=== PATIENT | female | born 1960 | race Caucasian/White ===

== ENCOUNTER 2021-09-22 10:12 | Observation (INO) | payer OTHER ==
[~2021-09-22] VITALS: Ht 170.2 cm; Wt 102.1 kg
[2021-09-22 10:22] VITALS: BP 98/69
[2021-09-22 11:00] LABS: BASO % 0.8 % (0.0-1.0); EOS # 0.1 10*3/uL (0.0-0.4); HEMATOCRIT 37.1 % (37.0-47.0); LYMPH # 0.5 10*3/uL (1.3-4.4); LYMPH % 14.4 % (27.0-41.0); MEAN CORPUSCULAR HGB 32.6 pg (27.0-31.0); MEAN CORPUSCULAR HGB CONC 32.6 g/dl (33.0-37.0); MEAN PLATELET VOLUME 8.9 fl (9.6-12.3); MONO # 0.5 10*3/uL (0.1-1.0); MONO % 14.7 % (3.0-9.0); NEUT # 2.5 10*3/uL (2.3-7.9); NEUT % 66.8 % (47.0-73.0); PLATELET COUNT AUTOMATED 297 10*3/uL (130-400); RED BLOOD COUNT 3.71 10*6/uL (4.10-5.10); RED CELL DISTRI WIDTH 13.3 % (0-14.5); WHITE BLOOD COUNT 3.7 10*3/uL (4.8-10.8)
[2021-09-22 11:11] LABS: ALBUMIN 3.4 gm/dl (3.1-4.5); ALKALINE PHOSPHATASE 74 U/L (45-117); BUN 7 mg/dl (7-24); CHLORIDE 108 mmol/L (98-107); CREATININE 1.06 mg/dL (0.55-1.02); LIPASE 74 U/L (73-393); POTASSIUM 3.4 mmol/L (3.5-5.1); SGOT/AST 18 IU/L (3-35); SGPT/ALT 27 U/L (12-78); SODIUM 140 mmol/L (136-145); TOTAL PROTEIN 6.7 gm/dL (6.4-8.2)
[2021-09-22 11:17] LABS: ACT PARTIAL THROMBO TIME 23.6 SECONDS (20.0-32.1)
[2021-09-22 12:00] VITALS: BP 144/58
[2021-09-22 14:07] VITALS: BP 101/40
[2021-09-22 15:31] VITALS: BP 134/65
[2021-09-22 17:01] VITALS: BP 143/68
[2021-09-22] MEDS ORDERED: ESZOPICLONE3 MG PO (17:15)
[2021-09-22] MEDS ORDERED: ATORVASTATIN CA20 M1 PO (17:16)
[2021-09-22] MEDS ORDERED: METHOTREXA25 MG/1 ML IJ (17:16)
[2021-09-22] MEDS ORDERED: BUPROPION ER100 M1 PO (17:17)
[2021-09-22] MEDS ORDERED: HYDROXYCHLOROQ200 M1 PO (17:17)
[2021-09-22] MEDS ORDERED: CEVIMELINE HCL30 MG PO (17:17)
[2021-09-22] MEDS ORDERED: PANTOPRAZOLE SO40 MG PO (17:18)
[2021-09-22] MEDS ORDERED: LEUCOVORIN CALCI5 MG PO (17:18)
[2021-09-22] MEDS ORDERED: SERTRALINE HYDR50 MG PO (17:18)
[2021-09-22] MEDS ORDERED: SYNTHROID,LEV125 MCG PO (17:19)
[2021-09-22 20:00] VITALS: BP 138/70
[2021-09-23] VITALS: BP 115/65; BP 116/55
[2021-09-23 06:19] LABS: ALBUMIN 3.5 gm/dl (3.1-4.5); BUN 7 mg/dl (7-24); CHLORIDE 112 mmol/L (98-107); CHOLESTEROL 132 mg/dL (<200); CREATININE 0.81 mg/dL (0.55-1.02); POTASSIUM 3.8 mmol/L (3.5-5.1); SGOT/AST 24 IU/L (3-35); SGPT/ALT 34 U/L (12-78); SODIUM 142 mmol/L (136-145)
[2021-09-23 06:26] LABS: ALKALINE PHOSPHATASE 74 U/L (45-117); BASO % 0.3 % (0.0-1.0); HEMATOCRIT 39.7 % (37.0-47.0); LDL CHOLESTEROL 61 mg/dL (9-159); LYMPH # 0.3 10*3/uL (1.3-4.4); LYMPH % 9.9 % (27.0-41.0); MEAN CELL VOLUME 102.3 fl (81.0-99.0); MEAN CORPUSCULAR HGB 32.2 pg (27.0-31.0); MEAN CORPUSCULAR HGB CONC 31.5 g/dl (33.0-37.0); MEAN PLATELET VOLUME 9.5 fl (9.6-12.3); MONO # 0.2 10*3/uL (0.1-1.0); MONO % 4.4 % (3.0-9.0); NEUT # 2.9 10*3/uL (2.3-7.9); NEUT % 85.1 % (47.0-73.0); PLATELET COUNT AUTOMATED 297 10*3/uL (130-400); RED BLOOD COUNT 3.88 10*6/uL (4.10-5.10); RED CELL DISTRI WIDTH 13.2 % (0-14.5); THYROID STIM HORMONE (HS) 0.053 uIU/ml (0.358-4.75); TRIGLYCERIDES 42 mg/dl (<150); WHITE BLOOD COUNT 3.4 10*3/uL (4.8-10.8)
[2021-09-23 08:00] VITALS: BP 103/88
[2021-09-23 08:46] LABS: VITAMIN D, 25-HYDROXY 36.8 ng/mL (30-100)
[2021-09-23 12:00] VITALS: BP 121/58
[2021-09-23 16:00] VITALS: BP 130/58
[2021-09-23 20:00] VITALS: BP 130/56
[2021-09-24] VITALS: BP 122/50
[2021-09-24 05:52] LABS: ALBUMIN 3.1 gm/dl (3.1-4.5); BUN 15 mg/dl (7-24); CHLORIDE 109 mmol/L (98-107); CREATININE 0.81 mg/dL (0.55-1.02); POTASSIUM 3.6 mmol/L (3.5-5.1); SGOT/AST 16 IU/L (3-35); SGPT/ALT 27 U/L (12-78); SODIUM 143 mmol/L (136-145); TOTAL PROTEIN 6.3 gm/dL (6.4-8.2)
[2021-09-24 05:53] LABS: ALKALINE PHOSPHATASE 65 U/L (45-117)
[2021-09-24 06:18] LABS: BASO % 0.2 % (0.0-1.0); HEMATOCRIT 36.6 % (37.0-47.0); LYMPH # 1.2 10*3/uL (1.3-4.4); LYMPH % 22.9 % (27.0-41.0); MEAN CELL VOLUME 101.1 fl (81.0-99.0); MEAN CORPUSCULAR HGB 32.9 pg (27.0-31.0); MEAN CORPUSCULAR HGB CONC 32.5 g/dl (33.0-37.0); MEAN PLATELET VOLUME 9.7 fl (9.6-12.3); MONO # 0.6 10*3/uL (0.1-1.0); MONO % 11.1 % (3.0-9.0); NEUT # 3.5 10*3/uL (2.3-7.9); NEUT % 65.6 % (47.0-73.0); PLATELET COUNT AUTOMATED 293 10*3/uL (130-400); RED BLOOD COUNT 3.62 10*6/uL (4.10-5.10); RED CELL DISTRI WIDTH 13.2 % (0-14.5); WHITE BLOOD COUNT 5.3 10*3/uL (4.8-10.8)
[2021-09-24 08:00] VITALS: BP 118/76
[2021-09-24 12:00] VITALS: BP 126/73
[2021-09-24 16:00] VITALS: BP 136/66
[2021-09-24 20:00] VITALS: BP 124/52
[2021-09-25] VITALS: BP 110/90
[2021-09-25 06:49] LABS: BASO % 0.3 % (0.0-1.0); EOS # 0.1 10*3/uL (0.0-0.4); EOS % 1.5 % (1.0-4.0); HEMATOCRIT 37.4 % (37.0-47.0); LYMPH # 2.2 10*3/uL (1.3-4.4); LYMPH % 37.6 % (27.0-41.0); MEAN CELL VOLUME 100.3 fl (81.0-99.0); MEAN CORPUSCULAR HGB 32.4 pg (27.0-31.0); MEAN CORPUSCULAR HGB CONC 32.4 g/dl (33.0-37.0); MEAN PLATELET VOLUME 9.5 fl (9.6-12.3); MONO # 0.7 10*3/uL (0.1-1.0); MONO % 12.3 % (3.0-9.0); NEUT # 2.8 10*3/uL (2.3-7.9); NEUT % 47.6 % (47.0-73.0); PLATELET COUNT AUTOMATED 282 10*3/uL (130-400); RED BLOOD COUNT 3.73 10*6/uL (4.10-5.10); RED CELL DISTRI WIDTH 13.2 % (0-14.5); WHITE BLOOD COUNT 5.8 10*3/uL (4.8-10.8)
[2021-09-25 06:59] LABS: ALBUMIN 3.2 gm/dl (3.1-4.5); ALKALINE PHOSPHATASE 61 U/L (45-117); BUN 16 mg/dl (7-24); CHLORIDE 110 mmol/L (98-107); CREATININE 0.82 mg/dL (0.55-1.02); POTASSIUM 3.2 mmol/L (3.5-5.1); SGOT/AST 18 IU/L (3-35); SGPT/ALT 26 U/L (12-78); SODIUM 143 mmol/L (136-145); TOTAL PROTEIN 6.2 gm/dL (6.4-8.2)
[2021-09-25 08:00] VITALS: BP 137/61
[2021-09-25] MEDS ORDERED: 'XANAX1 MG PO (09:56)
[2021-09-25] MEDS ORDERED: XANAX1 MG PO (09:57)
[2021-09-25 12:00] VITALS: BP 145/76
[2021-09-25 16:00] VITALS: BP 131/53
[2021-09-25 20:00] VITALS: BP 138/61
[2021-09-26] VITALS: BP 131/62
[2021-09-26 06:03] LABS: BASO % 0.3 % (0.0-1.0); EOS # 0.1 10*3/uL (0.0-0.4); EOS % 1.7 % (1.0-4.0); LYMPH # 1.9 10*3/uL (1.3-4.4); LYMPH % 31.9 % (27.0-41.0); MEAN CELL VOLUME 100.5 fl (81.0-99.0); MEAN CORPUSCULAR HGB CONC 32.8 g/dl (33.0-37.0); MEAN PLATELET VOLUME 9.5 fl (9.6-12.3); MONO # 0.8 10*3/uL (0.1-1.0); MONO % 12.9 % (3.0-9.0); NEUT # 3.1 10*3/uL (2.3-7.9); NEUT % 52.5 % (47.0-73.0); PLATELET COUNT AUTOMATED 299 10*3/uL (130-400); RED BLOOD COUNT 3.88 10*6/uL (4.10-5.10); RED CELL DISTRI WIDTH 13.1 % (0-14.5)
[2021-09-26 06:14] LABS: ALBUMIN 3.5 gm/dl (3.1-4.5); ALKALINE PHOSPHATASE 67 U/L (45-117); BUN 15 mg/dl (7-24); CHLORIDE 107 mmol/L (98-107); CREATININE 0.95 mg/dL (0.55-1.02); POTASSIUM 3.6 mmol/L (3.5-5.1); SGOT/AST 16 IU/L (3-35); SGPT/ALT 29 U/L (12-78); SODIUM 141 mmol/L (136-145); TOTAL PROTEIN 6.6 gm/dL (6.4-8.2)
[2021-09-26 08:00] VITALS: BP 139/68
[2021-09-26 12:00] VITALS: BP 135/63
[2021-09-26] MEDS ORDERED: DECADRON6 M1 PO (14:11)
== END 2021-09-26 16:39 | disposition home or self-care (01) ==
LOC: ED 10:12 → 4E 14:34 → EDHOLD 14:34 → 4E 14:34 → EDHOLD 14:35 → 4E 16:39
PROVIDERS: Emergency Medicine; Registered Nurse; Student in an Organized Health Care Education/Training Program; ADMIT Internal Medicine; ATTEND Internal Medicine
DX: U07.1 COVID-19 (principal); A41.9 Sepsis, unspecified organism; J96.01 Acute respiratory failure with hypoxia; N17.9 Acute kidney failure, unspecified; E87.6 Hypokalemia; E44.1 Mild protein-calorie malnutrition; M06.9 Rheumatoid arthritis, unspecified; M35.00 Sjogren syndrome, unspecified; E55.9 Vitamin D deficiency, unspecified; M79.7 Fibromyalgia; Z20.822 Contact with and (suspected) exposure to COVID-19; F41.1 Generalized anxiety disorder; G47.33 Obstructive sleep apnea (adult) (pediatric); E03.9 Hypothyroidism, unspecified; R79.89 Other specified abnormal findings of blood chemistry; G47.00 Insomnia, unspecified; E05.00 Thyrotoxicosis with diffuse goiter without thyrotoxic crisis or storm; R07.89 Other chest pain; F41.9 Anxiety disorder, unspecified; Z79.899 Other long term (current) drug therapy

== ENCOUNTER 2021-10-03 09:48 | Emergency (ER) | payer OTHER ==
[~2021-10-03] VITALS: Ht 170.1 cm; Wt 97.5 kg
[~2021-10-03 09:48] MED LIST: 'XANAX1 MG PO; ATORVASTATIN CA20 M1 PO; BUPROPION ER100 M1 PO; CEVIMELINE HCL30 MG PO; DECADRON6 M1 PO; ESZOPICLONE3 MG PO; HYDROXYCHLOROQ200 M1 PO; LEUCOVORIN CALCI5 MG PO; METHOTREXA25 MG/1 ML IJ; PANTOPRAZOLE SO40 MG PO; SERTRALINE HYDR50 MG PO; SYNTHROID,LEV125 MCG PO; XANAX1 MG PO
[2021-10-03 10:33] LABS: BASO % 0.4 % (0.0-1.0); EOS % 0.1 % (1.0-4.0); HEMATOCRIT 42.9 % (37.0-47.0); LYMPH # 1.9 10*3/uL (1.3-4.4); LYMPH % 23.9 % (27.0-41.0); MEAN CELL VOLUME 97.5 fl (81.0-99.0); MEAN CORPUSCULAR HGB 32.3 pg (27.0-31.0); MEAN CORPUSCULAR HGB CONC 33.1 g/dl (33.0-37.0); MONO % 11.8 % (3.0-9.0); NEUT % 62.6 % (47.0-73.0); PLATELET COUNT AUTOMATED 201 10*3/uL (130-400); RED CELL DISTRI WIDTH 13.2 % (0-14.5); WHITE BLOOD COUNT 8.1 10*3/uL (4.8-10.8)
[2021-10-03 10:49] LABS: ALBUMIN 3.5 gm/dl (3.1-4.5); CREATININE 1.3 mg/dL (0.55-1.02); POTASSIUM 3.2 mmol/L (3.5-5.1); TOTAL PROTEIN 7.2 gm/dL (6.4-8.2)
== END 2021-10-03 11:51 | disposition home or self-care (01) ==
LOC: ED 09:48
PROVIDERS: Student in an Organized Health Care Education/Training Program
DX: E86.0 Dehydration (principal); R42 Dizziness and giddiness; N17.9 Acute kidney failure, unspecified; Z88.2 Allergy status to sulfonamides; Z79.899 Other long term (current) drug therapy